=== PATIENT | male | born 1955 | race African-American/Black ===

== ENCOUNTER 2022-09-04 06:09 | Emergency (ER) | payer OTHER, BC ==
[2022-09-04 06:30] VITALS: RESP 22; BMI 29.9
[2022-09-04] MEDS ORDERED: MAG HYDROX/AL HYDROX/SIMETH -MYLANTA- ORAL SUSPENSION PO ONE (07:38)
[2022-09-04] MEDS ORDERED: PANTOPRAZOLE 40 MG TABLET PO ONE ×2 (07:38→07:51)
[2022-09-04] MEDS ORDERED: FAMOTIDINE 20 MG/50 ML IVPB 20 MG/50 ML MG IVPB ONE (07:38)
[2022-09-04] MEDS ORDERED: MAG HYDROX/AL HYDROX/SIMETH 30 ML UNIT-DOSE CUP ONE (07:51)
[2022-09-04] MEDS ORDERED: FAMOTIDINE 10 MG/ML VIAL IVPB ONE (07:52)
[2022-09-04 08:20] LABS: BASO % 0.8 % (0-2.0); HEMATOCRIT 47.6 % (35.4-49); HEMOGLOBIN 15.5 GM/dL (11.7-16.9); LYMPH % 31.2 % (8-40); MCH 27.6 pg (25.7-33.7); MCHC 32.5 g/dl (32.0-35.9); MEAN PLT VOLUME 8.3 fl (7.5-11.1); PLATELET COUNT 228 10^3/uL (134-434); RDW 14.6 % (11.9-15.9); WHITE BLOOD COUNT 5.4 K/mm3 (4.0-10.0)
[2022-09-04 08:41] LABS: ALBUMIN 3.9 g/dl (3.4-5.0); BLOOD UREA NITROGEN 15.6 mg/dL (7-18); CALCIUM 9.4 mg/dL (8.5-10.1); MAGNESIUM 2.3 mg/dL (1.8-2.4)
[2022-09-04 08:43] LABS: CREATININE 1.2 mg/dL (0.55-1.3)
[2022-09-04 08:45] LABS: BILIRUBIN,TOTAL 0.4 mg/dL (0.2-1); TOT PROT 7.2 g/dl (6.4-8.2)
[2022-09-04 11:24] VITALS: BP 151/79; PULSE 66; TEMP 97.7
== END 2022-09-04 11:40 | disposition home or self-care (01) ==
LOC: JER 06:09
PROC: 3E033GC Introduction of Other Therapeutic Substance into Peripheral Vein, Percutaneous Approach (ICD-10-PCS; principal; 2022-09-04)
DX: R07.0 Pain in throat (principal); Z87.19 Personal history of other diseases of the digestive system; Z86.79 Personal history of other diseases of the circulatory system
CPT/HCPCS: 0241U-QW; 36415; 80053; 83690; 83735; 84484; 85025; 93005; 93010; 99284-25

== ENCOUNTER 2023-02-06 11:25 | Emergency (ER) | payer OTHER, BC ==
[2023-02-06 11:48] VITALS: BP 178/100; PULSE 64; RESP 18; TEMP 98; BMI 31.2
== END 2023-02-06 13:47 | disposition home or self-care (01) ==
LOC: JERFT 11:25
DX: S09.90XA Unspecified injury of head, initial encounter (principal); W01.0XXA Fall on same level from slipping, tripping and stumbling without subsequent striking against object, initial encounter; Y92.009 Unspecified place in unspecified non-institutional (private) residence as the place of occurrence of the external cause
CPT/HCPCS: 70450-TC; 99284-25

== ENCOUNTER 2023-07-23 04:41 | Emergency (ER) | payer OTHER, BC ==
[2023-07-23 04:56] VITALS: BP 157/82; PULSE 87; RESP 18; TEMP 97.5; BMI 33.7
== END 2023-07-23 06:25 | disposition home or self-care (01) ==
LOC: JER 04:41
DX: R10.13 Epigastric pain (principal); R14.0 Abdominal distension (gaseous); Z52.008 Unspecified donor, other blood
CPT/HCPCS: 93005; 93010; 99283-25